=== PATIENT | female | born 1965 | race Caucasian/White ===

== ENCOUNTER 2020-09-09 22:53 | Inpatient (IN) ==
[2020-09-09] MEDS ORDERED: SODIUM CHLORIDE 0.9% 1,000 ML IV STA (23:32)
[2020-09-10] MEDS ORDERED: CHARCOAL AQUEOUS 25 GM/120 ML BOTTLE ONE (00:23)
[2020-09-10 00:56] LABS: Basophils % 0.6 % (0.0-0.8); Eosinophils % 0.4 % (0.00-10.9); Hematocrit 39.3 VOL% (35.7-47.0); Hemoglobin 13.4 GM/DL (12.0-16.0); Immature Granulocytes % 0.4 %; Immature Granulocytes Absolute 0.02 #; Lymphocytes # 0.9 10*3/uL (1.4-4.0); Lymphocytes % 16.9 % (21.3-54.2); Mean Corpuscular HGB Conc 34.1 GM/DL (32-36); Mean Corpuscular Volume 98.5 FL (87-102); Mean Platelet Volume 10.4 FL (9.6-12.0); Monocytes % 5.5 % (1.7-12.7); Neutrophils % 76.2 % (38.7-73.9); Platelet Count 229 T/CUMM (130-400); Red Blood Count 3.99 MC/CUMM (3.8-5.5); Red Cell Distribution Width 12.5 % (9.3-17.3); White Blood Count 5.4 T/CUMM (4-12)
[2020-09-10 00:58] LABS: Acetaminophen 138.6 UG/ML (10-30); Salicylate 3.5 MG/DL (2.8-20)
[2020-09-10 01:00] LABS: Alanine Aminotransferase 14 U/L (13-56); Albumin 3.8 G/DL (3.4-5.0); Alkaline Phosphatase 59 U/L (45-117); Aspartate Amino Transferase 16 U/L (0-37); Blood Urea Nitrogen 5 MG/DL (7-18); Calcium 8.9 MG/DL (8.5-10.1); Carbon Dioxide 26 MMOL/L (21-32); Estimated Glom Filtration Rate 105 ML/MIN; Glucose 121 MG/DL (74-106); Osmolality,Calculated 278.3 MOS/KG (273-304); Potassium 3.2 MMOL/L (3.5-5.1); Sodium 141 MMOL/L (136-145); Troponin I < 0.015 NG/ML (0.00-0.045)
[2020-09-10] MEDS ORDERED: ACETYLCYSTEINE IV ONE (01:16)
[2020-09-10] MEDS ORDERED: DEXTROSE 5% IV ONE (01:16)
[2020-09-10] MEDS ORDERED: DEXTROSE 50% 25 GM/50 ML VIAL IV PRN (02:44)
[2020-09-10] MEDS ORDERED: ONDANSETRON 4 MG/2 ML VIAL IV PRN (02:44)
[2020-09-10] MEDS ORDERED: GLUCAGON 1 MG VIAL IM PRN (02:44)
[2020-09-10 03:22] LABS: Barbiturates Screen,Urine Negative (Negative); Benzodiazepines Screen,Urine Positive (Negative); Cannabinoid Screen,Urine Negative (Negative); Opiate Screen,Urine Negative (Negative); Phencyclidine Screen,Urine Negative (Negative)
[2020-09-10] MEDS: SODIUM CHLORIDE 0.9% 1,000 ML IV SCH ×3 (04:00→21:33)
[2020-09-10] MEDS ORDERED: ACETYLCYSTEINE 20% 6,000 MG/30 ML VIAL PO ONE (07:00)
[2020-09-10 14:16] LABS: Alanine Aminotransferase 21 U/L (13-56); Albumin 2.9 G/DL (3.4-5.0); Alkaline Phosphatase 45 U/L (45-117); Aspartate Amino Transferase 7 U/L (0-37); Bilirubin,Direct < 0.100 MG/DL (0.0-0.20); Bilirubin,Indirect 0.3 MG/DL (0.0-1.0); Bilirubin,Total < 0.39 MG/DL (0.2-1.0); Blood Urea Nitrogen 3 MG/DL (7-18); Calcium 8.3 MG/DL (8.5-10.1); Carbon Dioxide 27 MMOL/L (21-32); Estimated Glom Filtration Rate 117 ML/MIN; Glucose 99 MG/DL (74-106); Osmolality,Calculated 284.7 MOS/KG (273-304); Sodium 145 MMOL/L (136-145); Total Protein 5.8 G/DL (6.4-8.3)
[2020-09-10] MEDS: DIFLUPREDNATE 0.05% OPH EMUL 5 ML BOTTLE BOTH EYES SCH ×2 (14:33→21:32)
[2020-09-10] MEDS: BRIMONIDINE/TIMOLOL OPH SOLN 5 ML BOTTLE BOTH EYES SCH ×2 (14:33→21:32)
[2020-09-10] MEDS: ACETYLCYSTEINE 20% 6,000 MG/30 ML VIAL PO SCH ×3 (14:34→21:32)
[2020-09-10] MEDS ORDERED: HALOPERIDOL DECANOATE 50 MG/1 ML VIAL IM SCH (15:00)
[2020-09-11] MEDS: ACETYLCYSTEINE 20% 6,000 MG/30 ML VIAL PO SCH ×6 (01:40→21:59)
[2020-09-11] MEDS: SODIUM CHLORIDE 0.9% 1,000 ML IV SCH ×4 (03:00→19:26)
[2020-09-11] MEDS: BRIMONIDINE/TIMOLOL OPH SOLN 5 ML BOTTLE BOTH EYES SCH ×2 (09:40→22:04)
[2020-09-11] MEDS: DIFLUPREDNATE 0.05% OPH EMUL 5 ML BOTTLE BOTH EYES SCH ×2 (09:40→22:04)
[2020-09-11] MEDS: DIVALPROEX ER 500 MG TABLET PO SCH (14:42)
[2020-09-11] MEDS: SERTRALINE 50 MG TABLET PO SCH (14:42)
[2020-09-11] MEDS: BENZTROPINE 1 MG TABLET PO SCH (21:59)
[2020-09-11] MEDS: PROPRANOLOL 20 MG TABLET PO SCH (22:00)
[2020-09-12] MEDS: SODIUM CHLORIDE 0.9% 1,000 ML IV SCH ×5 (02:00→16:37)
[2020-09-12] MEDS: ACETYLCYSTEINE 20% 6,000 MG/30 ML VIAL PO SCH ×5 (02:23→20:55)
[2020-09-12 05:47] LABS: Basophils % 0.5 % (0.0-0.8); Eosinophils # 0.1 10*3/uL (0.0-0.87); Eosinophils % 1.8 % (0.00-10.9); Hematocrit 32.4 VOL% (35.7-47.0); Hemoglobin 11.2 GM/DL (12.0-16.0); Immature Granulocytes % 0.3 %; Immature Granulocytes Absolute 0.01 #; Lymphocytes # 1.4 10*3/uL (1.4-4.0); Lymphocytes % 36.3 % (21.3-54.2); Mean Corpuscular HGB Conc 34.6 GM/DL (32-36); Mean Corpuscular Volume 97.9 FL (87-102); Mean Platelet Volume 10.9 FL (9.6-12.0); Monocytes % 12.9 % (1.7-12.7); Neutrophils % 48.2 % (38.7-73.9); Platelet Count 174 T/CUMM (130-400); Red Blood Count 3.31 MC/CUMM (3.8-5.5); Red Cell Distribution Width 12.5 % (9.3-17.3); White Blood Count 3.9 T/CUMM (4-12)
[2020-09-12 06:03] LABS: Albumin 2.7 G/DL (3.4-5.0); Bilirubin,Total 0.6 MG/DL (0.2-1.0); Calcium 8.3 MG/DL (8.5-10.1); Osmolality,Calculated 277.1 MOS/KG (273-304); Total Protein 5.6 G/DL (6.4-8.3)
[2020-09-12] MEDS: DIVALPROEX ER 500 MG TABLET PO SCH (09:00)
[2020-09-12] MEDS: SERTRALINE 50 MG TABLET PO SCH (09:00)
[2020-09-12] MEDS: BRIMONIDINE/TIMOLOL OPH SOLN 5 ML BOTTLE BOTH EYES SCH ×2 (09:01→21:08)
[2020-09-12] MEDS: DIFLUPREDNATE 0.05% OPH EMUL 5 ML BOTTLE BOTH EYES SCH ×2 (09:01→21:08)
[2020-09-12] MEDS: POTASSIUM CHLORIDE 20 MEQ TABLET PO PRN ×4 (12:10→21:04)
[2020-09-12] MEDS: BENZTROPINE 1 MG TABLET PO SCH (21:04)
[2020-09-12] MEDS: PROPRANOLOL 20 MG TABLET PO SCH (21:05)
[2020-09-13] MEDS: ACETYLCYSTEINE 20% 6,000 MG/30 ML VIAL PO SCH ×3 (00:27→09:37)
[2020-09-13] MEDS: SODIUM CHLORIDE 0.9% 1,000 ML IV SCH ×4 (00:29→20:15)
[2020-09-13 06:01] LABS: Basophils % 0.7 % (0.0-0.8); Eosinophils # 0.1 10*3/uL (0.0-0.87); Eosinophils % 2.7 % (0.00-10.9); Hematocrit 31.6 VOL% (35.7-47.0); Immature Granulocytes % 0.2 %; Immature Granulocytes Absolute 0.01 #; Lymphocytes # 1.4 10*3/uL (1.4-4.0); Lymphocytes % 35.1 % (21.3-54.2); Mean Corpuscular HGB Conc 34.8 GM/DL (32-36); Mean Corpuscular Volume 98.1 FL (87-102); Mean Platelet Volume 11.2 FL (9.6-12.0); Monocytes % 12.3 % (1.7-12.7); Platelet Count 168 T/CUMM (130-400); Red Blood Count 3.22 MC/CUMM (3.8-5.5); Red Cell Distribution Width 12.5 % (9.3-17.3); White Blood Count 4.1 T/CUMM (4-12)
[2020-09-13 06:31] LABS: Albumin 2.8 G/DL (3.4-5.0); Bilirubin,Total 0.6 MG/DL (0.2-1.0); Calcium 8.3 MG/DL (8.5-10.1); Osmolality,Calculated 284.8 MOS/KG (273-304); Potassium 3.1 MMOL/L (3.5-5.1); Total Protein 5.5 G/DL (6.4-8.3)
[2020-09-13] MEDS: DIVALPROEX ER 500 MG TABLET PO SCH (09:37)
[2020-09-13] MEDS: POTASSIUM CHLORIDE 20 MEQ TABLET PO PRN ×4 (09:37→16:23)
[2020-09-13] MEDS: SERTRALINE 50 MG TABLET PO SCH (09:37)
[2020-09-13] MEDS: BRIMONIDINE/TIMOLOL OPH SOLN 5 ML BOTTLE BOTH EYES SCH ×2 (09:38→22:50)
[2020-09-13] MEDS: DIFLUPREDNATE 0.05% OPH EMUL 5 ML BOTTLE BOTH EYES SCH ×2 (09:38→22:50)
[2020-09-13] MEDS: PROPRANOLOL 20 MG TABLET PO SCH (22:47)
[2020-09-13] MEDS: BENZTROPINE 1 MG TABLET PO SCH (22:49)
[2020-09-14] MEDS: SODIUM CHLORIDE 0.9% 1,000 ML IV SCH ×3 (05:51→21:59)
[2020-09-14 06:24] LABS: Basophils % 0.7 % (0.0-0.8); Eosinophils # 0.1 10*3/uL (0.0-0.87); Eosinophils % 2.5 % (0.00-10.9); Hematocrit 30.8 VOL% (35.7-47.0); Hemoglobin 10.5 GM/DL (12.0-16.0); Immature Granulocytes % 0.2 %; Immature Granulocytes Absolute 0.01 #; Lymphocytes # 1.2 10*3/uL (1.4-4.0); Lymphocytes % 30.9 % (21.3-54.2); Mean Corpuscular HGB Conc 34.1 GM/DL (32-36); Mean Corpuscular Volume 98.1 FL (87-102); Mean Platelet Volume 10.4 FL (9.6-12.0); Monocytes % 12.2 % (1.7-12.7); Neutrophils % 53.5 % (38.7-73.9); Platelet Count 161 T/CUMM (130-400); Red Blood Count 3.14 MC/CUMM (3.8-5.5); Red Cell Distribution Width 12.6 % (9.3-17.3)
[2020-09-14 06:53] LABS: Albumin 2.7 G/DL (3.4-5.0); Bilirubin,Total 0.9 MG/DL (0.2-1.0); Calcium 8.6 MG/DL (8.5-10.1); Total Protein 5.6 G/DL (6.4-8.3)
[2020-09-14] MEDS: DIVALPROEX ER 500 MG TABLET PO SCH (09:29)
[2020-09-14] MEDS: SERTRALINE 50 MG TABLET PO SCH (09:29)
[2020-09-14] MEDS: DIFLUPREDNATE 0.05% OPH EMUL 5 ML BOTTLE BOTH EYES SCH ×2 (09:30→20:19)
[2020-09-14] MEDS: BRIMONIDINE/TIMOLOL OPH SOLN 5 ML BOTTLE BOTH EYES SCH ×2 (09:30→20:19)
[2020-09-14] MEDS: BENZTROPINE 1 MG TABLET PO SCH (20:18)
[2020-09-14] MEDS: PROPRANOLOL 20 MG TABLET PO SCH (20:19)
[2020-09-15] MEDS: SODIUM CHLORIDE 0.9% 1,000 ML IV SCH ×2 (05:30→14:23)
[2020-09-15] MEDS: DIFLUPREDNATE 0.05% OPH EMUL 5 ML BOTTLE BOTH EYES SCH ×2 (09:06→21:53)
[2020-09-15] MEDS: DIVALPROEX ER 500 MG TABLET PO SCH (09:06)
[2020-09-15] MEDS: BRIMONIDINE/TIMOLOL OPH SOLN 5 ML BOTTLE BOTH EYES SCH ×2 (09:06→21:53)
[2020-09-15] MEDS: SERTRALINE 50 MG TABLET PO SCH (09:06)
[2020-09-15] MEDS: BENZTROPINE 1 MG TABLET PO SCH (21:50)
[2020-09-15] MEDS: PROPRANOLOL 20 MG TABLET PO SCH (21:51)
[2020-09-15 23:45] VITALS: BP 126/63
== END 2020-09-15 23:58 | DRG 918 ==
LOC: EDUNIT# → EDBD → N.ED 22:53 → SUATTDRO 09-10 02:44 → N.EDINP 09-10 02:44 → N.5E 09-10 03:41
PROVIDERS: ADMIT Internal Medicine; ATTEND Internal Medicine